=== PATIENT | male | born 1995 | race Caucasian/White ===

== ENCOUNTER → 2020-06-24 | Emergency (ER) | payer SELFPAY ==
[~2020-06-24] VITALS: Ht 185.4 cm; Wt 195.0 kg
[~2020-06-24] MED LIST: AMOX875T PO
[2020-06-24 19:30] VITALS: BP 176/119
--- NOTE | 2020-06-24 19:43 | PHYS DOC ---
General Adult EDM: Chief Complaint: FACE PAIN HPI: HPI: Patient is a 25 year old male who presents to the ED today with left facial swelling from a dental abscess is on for 2 days. Patient denies any fever or trismus. (HARISH BREEN APRN) Review of Systems: Review of Systems: Constitutional: Denies fever or chills. [] HENT: Reports left facial swelling from a dental abscess Musculoskeletal: Denies back pain or joint pain. [] Integument: Denies rash. [] Neurologic: Denies headache, focal weakness or sensory changes. [] Psychiatric: Denies depression or anxiety. [] (HARISH BREEN APRN) Heart Score: Risk Factors: Risk Factors: DM, Current or recent (<one month) smoker, HTN, HLP, family history of CAD, obesity. Risk Scores: Score 0 - 3: 2.5% MACE over next 6 weeks - Discharge Home Score 4 - 6: 20.3% MACE over next 6 weeks - Admit for Clinical Observation Score 7 - 10: 72.7% MACE over next 6 weeks - Early Invasive Strategies (HARISH BREEN APRN) Allergies: Allergies: Allergies Coded Allergies Type Severity Reaction Last Updated Verified No Known Drug Allergies 06/24/20 No (HARISH BREEN APRN) Physical Exam: PE: Constitutional: Well developed, well nourished, no acute distress, non-toxic appearance. [] HENT: Normocephalic, atraumatic, bilateral external ears normal, oropharynx moist, no oral exudates, nose normal. [] Left upper cheek with mild swelling consistent of a dental abscess, left upper gum also noted for some swelling, there is no fluctuance. There is erythema over the left upper gums around the molars and premolars. Skin: Warm, dry, no erythema, no rash. [] Back: No tenderness, no CVA tenderness. [] Extremities: No tenderness, no cyanosis, no clubbing, ROM intact, no edema. [] Neurologic: Alert and oriented X 3, normal motor function, normal sensory function, no focal deficits noted. [] Psychologic: Affect normal, judgement normal, mood normal. [] (HARISH BREEN APRN) EKG: EKG: [] (HARISH BREEN APRN) Radiology/Procedures: Radiology/Procedures: [] (HARISH BREEN APRN) Course & Med Decision Making: Course & Med Decision Making Pertinent Labs and Imaging studies reviewed. (See chart for details) [] This is a 25-year-old male patient with dental abscess. Discharged on a moxicillin. He already has ibuprofen and hydrocodone. He has a dentist. Will follow up as soon as possible. (HARISH BREEN APRN) Course & Med Decision Making I have reviewed the PA/FOOD SAFETY DIRECTOR's note and Plan of Care. I was available for consultation as needed during the patient's visit in the emergency department. I agree with the clinical impression, plans and disposition. (ZACH COTA MD) Dragon Disclaimer: Dragon Disclaimer: This electronic medical record was generated, in whole or in part, using a voice recognition dictation system. (HARISH BREEN APRN) Departure Departure Impression: Primary Impression: Dental abscess Disposition: 01 DC HOME SELF CARE/HOMELESS Condition: STABLE Referrals: NO PCP (PCP) follow up with your dentist as soon as you can Patient Instructions: Dental Abscess Additional Instructions: You have a dental abscess. Take the prescribed antibiotics until completed. Follow-up with your dentist as soon as you can Scripts Amoxicillin (AMOXICILLIN) 875 Mg Tablet 1 TAB PO BID, #20 TAB Prov: HARISH BREEN APRN 06/24/20 HARISH BREEN APRN Jun 24, 2020 19:43 ZACH COTA MD Jun 24, 2020 20:29
== END ==
LOC: ER 19:22
DX: K04.7 Periapical abscess without sinus (principal); R60.0 Localized edema; L53.9 Erythematous condition, unspecified
CPT/HCPCS: 99283